=== PATIENT | male | born 1960 | race Caucasian/White ===

== ENCOUNTER 2017-01-30 04:36 | Emergency (ER) | payer OTHER ==
[~2017-01-30] VITALS: Ht 180.3 cm; Wt 80.5 kg
[~2017-01-30 04:36] MED LIST: VARE.5 PO; VARE1 PO
[2017-01-30 04:44] VITALS: BP 132/80; PULSE 70; RESP 16; TEMP 98.4; O2SAT 97
[2017-01-30 05:55] VITALS: BP 127/79; PULSE 57; RESP 14; TEMP 97.9; O2SAT 98
[2017-01-30] MEDS ORDERED: PROPARACAINE HCL 0.5% OPHT SOLN 15 ML BTL RIGHT EYE ONE (06:00)
--- NOTE | 2017-01-30 06:23 | PD ---
HPI Chief Complaint: Foreign Body Time Seen by Provider: 05:56 Travel History International Travel<30 days: No Contact w/Intl Traveler<30days: No Traveled to known affect area: No History of Present Illness HPI The patient is a 56-year-old male that felt a foreign body sensation in his right eye beginning yesterday. He has been rubbing his eye. He states his hands a been dirty, he normally eats them clean by wearing gloves at work but he ran out of his gloves. He denies any trauma. [facility] Past Medical History Medical History: Denies Significant Hx Diminished Hearing: No Tetanus Vaccination: Unknown Influenza Vaccination: No Past Surgical History Tonsillectomy: Yes Social History Alcohol Use: No Tobacco Use: Yes (1 06/15-2 ppd) Substance Use: No Allergies-Medications (Allergen,Severity, Reaction): Coded Allergies: No Known Allergies (Unverified , 12/07/16) Reported Meds & Prescriptions Reported Meds & Active Scripts Active Chantix (Varenicline) 1 Mg Tab 1 Mg PO BIDPC Chantix (Varenicline) 0.5 Mg Tab 0.5 Mg PO DAILY Days 1-3 Chantix (Varenicline) 0.5 Mg Tab 0.5 Mg PO BIDPC Days 4-7 Review of Systems Except as stated in HPI: all other systems reviewed are Neg Physical Exam Narrative GENERAL: Well-nourished, well-developed patient in moderate apparent distress with his right eye discomfort. His vital signs are normal. SKIN: Focused skin assessment warm/dry. HEAD: Normocephalic. EYES: No scleral icterus. The right eye shows considerable injection with clear drainage. The visual acuity is 20/30 in the left eye and 20/40 in the right eye. Fluorescein staining reveals corneal uptake in the central portion of the eye. It is a square patch about 3 x 2 mm. Lids were everted and tarsal plate everted, no foreign body seen. No foreign body is seen on the cornea. NECK: Supple, trachea midline. No JVD or lymphadenopathy. CARDIOVASCULAR: Regular rate and rhythm without murmurs, gallops, or rubs. RESPIRATORY: Breath sounds equal bilaterally. No accessory muscle use. GASTROINTESTINAL: Abdomen soft, non-tender, nondistended. MUSCULOSKELETAL: No cyanosis, or edema. BACK: Nontender without obvious deformity. No CVA tenderness. Data Data Last Documented VS Vital Signs Date Time Temp Pulse Resp B/P Pulse Ox O2 Delivery O2 Flow Rate FiO2 01/30/17 04:44 98.4 70 16 132/80 97 Room Air Orders Proparacaine 0.5% Opth Soln (Alcaine 0.5 (01/30/17 06:00) MDM Medical Decision Making Medical Screen Exam Complete: Yes Emergency Medical Condition: Yes Medical Record Reviewed: Yes Differential Diagnosis Corneal abrasion, foreign body right eye, flash burnshighly unlikely, herpes keratitis, other keratitis Narrative Course The patient has corneal abrasion. He needs to follow-up with an pressure controller if this does not get better by Wednesday. Diagnosis Primary Impression: Corneal abrasion, right Additional Instructions: Sriram should feel much better by Wednesday, if not better you need to follow-up with an pressure controller on Wednesday. Med/Other Pt SpecificInfo: Prescription(s) given Disposition: DISCHARGE HOME Condition: Stable Esteban Tyler MD Jan 30, 2017 06:23
[2017-01-30] MEDS ORDERED: TOBRAMYCIN SULFATE 0.3% OPTH OINT 3.5 GM TUBE RIGHT EYE ONE (06:30)
== END 2017-01-30 06:51 | disposition home or self-care (01) ==
LOC: PHED 04:36
DX: S05.01XA Injury of conjunctiva and corneal abrasion without foreign body, right eye, initial encounter (principal); X58.XXXA Exposure to other specified factors, initial encounter
CPT/HCPCS: 99283

== ENCOUNTER 2017-11-20 19:44 | Emergency (ER) | payer OTHER ==
[~2017-11-20] VITALS: Ht 180.3 cm; Wt 84.8 kg
[2017-11-20 20:11] VITALS: BP 140/84; PULSE 73; RESP 16; TEMP 98.5; O2SAT 96
[2017-11-20] MEDS ORDERED: PROPARACAINE HCL 0.5% OPHT SOLN 15 ML BTL RIGHT EYE ONE (20:30)
--- NOTE | 2017-11-20 20:34 | PD ---
HPI Chief Complaint: Eye Problems/Injury Time Seen by Provider: 20:27 Travel History International Travel<30 days: No Contact w/Intl Traveler<30days: No Traveled to known affect area: No History of Present Illness HPI 57-year-old male presents to the emergency department by private transportation for complaint of 3-4 hours of right eye pain and irritation. Patient states he was working in the yard as well as cutting gutters wearing safety glasses and noted that while he was doing these tasks he was sweating quite a bit and his eyes are stinging and burning. Subsequently he has noted increasing pain and irritation to the right eye. Patient denies any specific known injury. Patient is concerned there may be retained debris in his right eye. Patient does wear corrective lenses and was wearing his protective safety glasses with side guards while he was performing his outdoor tasks. Patient denies other concerns or complaints. Patient rates his pain 8/10 intensity. did irrigate the eye with some saline without symptom relief. Opening the eyes seems to exacerbate his symptoms no alleviating factors noted. Patient also notes some mild residual irritation to the left eye as well and requests that to be evaluated also but does not have severe pain or discomfort to the same extent as the right eye appear. Unknown tetanus status. PFSH Past Medical History Narrative Medical Tonsillectomy, synthetic tobacco use; nursing notes reviewed Medical History: Denies Significant Hx Diminished Hearing: No Tetanus Vaccination: > 5 Years Influenza Vaccination: No Past Surgical History Tonsillectomy: Yes Social History Alcohol Use: No Tobacco Use: Yes (vpes) Substance Use: No Allergies-Medications (Allergen,Severity, Reaction): Coded Allergies: No Known Allergies (Unverified Adverse Reaction, Unknown, 11/20/17) Reported Meds & Prescriptions Reported Meds & Active Scripts Active No Active Prescriptions or Reported Medications Review of Systems Except as stated in HPI: all other systems reviewed are Neg Physical Exam Narrative GENERAL: Well-developed well-nourished male in no acute distress no respiratory distress SKIN: Warm and dry. HEAD: Normocephalic. EYES: No scleral icterus. Right eye with injection and tearing/drainage. Bilateral eyes inspected with fluorescein stain there is definite corneal abrasion without obvious retained foreign body or visualized foreign body affecting the right eye between the 6:00 and 8 o'clock position as well as the left eye shows no fluorescein uptake and no visible debris. Data Data Last Documented VS Vital Signs Date Time Temp Pulse Resp B/P (MAP) Pulse Ox O2 Delivery O2 Flow Rate FiO2 11/20/17 20:21 (102) 11/20/17 20:11 98.5 73 16 96 Orders Orders Proparacaine 0.5% Opth Soln (Alcaine 0.5 (11/20/17 20:30) Eye Irrigation (11/20/17 20:49) Tetanus/Diphtheria Tox Adult (Tetanus/Di (11/20/17 21:00) Erythromycin 0.5% Opth Oint (Ilotycin 0. (11/20/17 21:00) MDM Medical Decision Making Medical Screen Exam Complete: Yes Emergency Medical Condition: Yes Medical Record Reviewed: Yes Differential Diagnosis Chemical conjunctivitis chemosis retained foreign body corneal abrasion iritis globe injury Narrative Course Patient unwilling to open the right eye due to complaint of pain proparacaine drops ordered Bilateral eyes inspected with fluorescein staining after proparacaine drop applied and there is definite evidence of a corneal abrasion between the 6:00 and 8 o'clock position. No visible debris. Left eye shows no corneal abrasion no fluorescein uptake. Pupils are equal round reactive to light extraocular muscles are intact there is some mild chemosis affecting the conjunctiva of the right eye. No gross hyphema no distortion of the pupil. We will irrigate both eyes with Rayo lens Ilotycin ointment to the right eye applied; tetanus status updated Diagnosis Primary Impression: Corneal abrasion, right Qualified Codes: S05.01XA - Injury of conjunctiva and corneal abrasion without foreign body, right eye, initial encounter Additional Impression: Irritation of both eyes Referrals: [facility] 1 day Patient Instructions: Corneal Abrasion (ED), General Instructions Additional Instructions: Avoid rubbing her eyes May use saline drops for irrigation purposes Apply antibiotic ointment to right eye as prescribed Follow-up with carriage dogger/eye doctor call office in a.m. Return to the emergency department for any concerns or change in condition or change in vision May apply intermittently cool compresses to the affected eye for the first 12- 24 hrs. Med/Other Pt SpecificInfo: Prescription(s) given Scripts Erythromycin Opth Oint (Erythromycin Opth Oint) 5 Mg/Gm Oint 1 APPLIC RIGHT EYE QID for Infection, #1 TUBE 0 Refills Prov: Salter,Roxanne H. MD 11/20/17 Ibuprofen (Ibuprofen) 800 Mg Tab 800 MG PO Q8H Y for PAIN GREATER THAN 5, #12 TAB 0 Refills Prov: Roxanne Velasquez MD 11/20/17 Oxycodone-Acetaminophen (Percocet) 5-325 mg Tab 1 TAB PO Q6H Y for PAIN, #5 TAB 0 Refills Prov: Roxanne Velasquez MD 11/20/17 Disposition: 01 DISCHARGE HOME Condition: Stable Roxanne Velasquez MD Nov 20, 2017 20:34
[2017-11-20] MEDS ORDERED: IBUP1TAB7 PO (20:53)
[2017-11-20] MEDS ORDERED: PERC5TAB12 PO (20:53)
[2017-11-20] MEDS ORDERED: ERYTOIN10 RIGHT EYE (20:53)
[2017-11-20] MEDS ORDERED: TETANUS/DIPHTHERIA TOXOID ADULT 0.5 ML VIAL IM ONE (21:00)
[2017-11-20] MEDS ORDERED: ERYTHROMYCIN 0.5% OPTH OINT 3.5 GM TUBO RIGHT EYE ONE (21:00)
== END 2017-11-20 21:40 | disposition home or self-care (01) ==
LOC: PHEFT 19:44
DX: S05.01XA Injury of conjunctiva and corneal abrasion without foreign body, right eye, initial encounter (principal); H57.8 Other specified disorders of eye and adnexa; Z72.0 Tobacco use; Z23 Encounter for immunization
CPT/HCPCS: 90471; 90714